=== PATIENT | female | born 1985 | race Caucasian/White ===

== ENCOUNTER 2023-05-15 14:20 | Emergency (ER) | payer OTHER ==
[2023-05-15] MEDS ORDERED: Sodium Chloride 0.9% 1000 ML 1,000 ML IV STA (14:39)
[2023-05-15] MEDS ORDERED: BENADRYL 50 MG/ML IV ONE (14:39)
[2023-05-15] MEDS ORDERED: Reglan 10 MG/2 ML IV ONE (14:39)
[2023-05-15] MEDS ORDERED: TORAdol 30 mg Injection IV ONE (14:39)
[2023-05-15 14:44] VITALS: TEMP 97.6; O2SAT 97
[2023-05-15 15:08] LABS: Absolute Neutrophil Ct (ANC) 4.27 x10^3/uL (1.4-6.9); BASOPHIL % 0.4 % (0.0-0.4); Basophil (Absolute #) 0.03 x10^3/uL (0-0.4); Eosinophil % 1.1 % (0.00-5.0); Eosinophil (Absolute #) 0.08 x10^3/uL (0-0.5); Hematocrit 39.9 % (35-47); Hemoglobin 12.9 g/dL (12.0-16.0); IMMATURE GRAN # 0.01 x10^3u/L (0.00-0.03); IMMATURE GRAN % 0.1 % (0.00-0.4); Lymphocyte (Absolute #) 2.21 x10^3/uL (1.0-4.6); Lymphocytes % 30.2 % (24.0-44.0); Mean Cell Volume 89.5 fL (78-100); Mean Corpuscular Hemoglobin 28.9 pg (26-32); Mean Corpuscular Hgb Concent. 32.3 g/dL (32-36); Mean Platelet Volume 10.3 fL (7.5-11.0); Monocyte (Absolute #) 0.72 x10^3/uL (0.0-1.3); Monocytes % 9.8 % (0.0-12.0); Neutrophil % 58.4 % (36.0-66.0); Platelet Count 346 x10^3/uL (150-450); Red Blood Count 4.46 x10^6/uL (4.1-5.4); Red Cell Distribution Width 13.2 % (11.5-14.0); White Blood Count 7.3 x10^3/uL (4.0-10.5)
[2023-05-15 15:22] LABS: ALBUMIN 4.4 g/dL (3.5-5.0); ALKALINE PHOSPHATASE 51 U/L (38-126); BLOOD UREA NITROGEN 11 mg/dL (7-17); CHLORIDE 105 mmol/L (98-107); Calcium 9.7 mg/dL (8.4-10.2); Carbon Dioxide 21 mmol/L (22-30); Creatinine 1 0.74 mg/dL (0.52-1.04); EST GLOMERULAR FILTRATION RATE > 60.0 ML/MIN; Glucose 117 mg/dL (74-106); Potassium 3.8 mmol/L (3.5-5.1); SGOT/AST 28 U/L (14-36); SGPT/ALT 30 U/L (0-35); SODIUM 139 mmol/L (137-145); Total Protein 7.7 g/dL (6.3-8.2)
[2023-05-15 15:24] LABS: Erythrocyte Sedimentation Rate 15 mm/hr (0-20)
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
[2023-05-15] MEDS ORDERED: TORAdol 30 mg Injection ONE (15:41)
[2023-05-15] MEDS ORDERED: BENADRYL 50 MG/ML ONE (15:42)
[2023-05-15] MEDS ORDERED: Sodium Chloride 0.9% 1000 ML 1,000 ML ONE (15:42)
[2023-05-15] MEDS ORDERED: Reglan 10 MG/2 ML ONE (15:42)
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
[2023-05-15 17:05] VITALS: BP 120/78; PULSE 77; RESP 18
== END 2023-05-15 17:02 | disposition home or self-care (01) ==
LOC: ED 14:20
DX: G43.009 Migraine without aura, not intractable, without status migrainosus (principal); S06.0X0A Concussion without loss of consciousness, initial encounter; V89.2XXA Person injured in unspecified motor-vehicle accident, traffic, initial encounter; R11.0 Nausea; R20.2 Paresthesia of skin; R53.83 Other fatigue; I10 Essential (primary) hypertension; Z79.899 Other long term (current) drug therapy; Z28.310 Unvaccinated for COVID-19
CPT/HCPCS: 36415; 70450; 80053; 85025; 85652; 96360; 96374; 96375; 99284; J1200; J1885

== ENCOUNTER 2024-02-23 18:49 | Emergency (ER) | payer OTHER ==
[2024-02-23 19:03] VITALS: TEMP 97.6
--- NOTE | 2024-02-23 19:31 | ERPHSYRPT ---
- History of Present Illness Time Seen by Provider: 02/23/24 18:55 Source: patient Exam Limitations: no limitations Patient Subjective Stated Complaint: Pt was started on Amoxicillin on Wednesday and Wednesday evening she began getting a rash and so she did not take any med today (Wednesday), itchy Triage Nursing Assessment: Pt was brought to the ER by her mother, vitals wnl, rates pain as 6/10, red small bumpy rash on feet/hands/thighs/back/arms, itchy, denies trouble breathing or tongue swelling Physician History: 38-year-old female presents to emergency department for evaluation of an allergic reaction. Patient was prescribed amoxicillin to treat a right otitis media. Patient began her amoxicillin on Wednesday. By the following day Wednesday patient developed a pruritic rash. Patient took a total of 3 doses of amoxicillin before discontinuation. Patient's last dose was yesterday at approximately 10 PM. No associated nausea or vomiting no abdominal cramping no shortness of breath no wheezing no throat tightness no intraoral lesions. Symptoms have not been constant, nonprogressive over the past day. Patient is allergic to sulfa. Patient otherwise feels well. Patient rates her level of discomfort a 6 out of 10. She is not in pain per say. Patient discomfort is pruritus. Patient voices no other complaints or concerns at this time. Portions of this note were created with voice recognition technology. There may be grammatical, spelling, punctuation or sound alike errors Timing/Duration: yesterday Severity: moderate Modifying Factors: Improves With: nothing Associated Symptoms: denies symptoms Allergies/Adverse Reactions: amoxicillin Allergy (Verified 02/23/24 19:03) Rash Sulfa (Sulfonamide Antibiotics) Allergy (Verified 02/23/24 19:03) Hives Home Medications: Cetirizine HCl [Zyrtec] 10 mg PO DAILY 11/19/14 [History] Benazepril HCl [Lotensin] 10 mg PO DAILY 05/15/23 [History] Ergocalciferol (Vitamin D2) [Vitamin D2] 1,250 mcg PO WEEKLY 05/15/23 [History] Levothyroxine Sodium 88 mcg PO DAILY 05/15/23 [History] Norgestimate-Ethinyl Estradiol [Norg-Ee 0.18-0.215-0.25/0.035] 1 tablet PO DAILY 05/15/23 [History] Topiramate 25 mg [Topamax 25 MG] 25 mg PO DAILY 05/15/23 [History] Zinc Amino Acid Chelate [Zinc] 50 mg PO DAILY 05/15/23 [History] Labetalol HCl 100 mg [Trandate 100 MG] 200 mg PO BID 02/23/24 [History] Hx Tetanus, Diphtheria Vaccination/Date Given: No Hx Influenza Vaccination/Date Given: Yes Hx Pneumococcal Vaccination/Date Given: No Travel Risk - International Travel Have you traveled outside of the country in past 3 weeks: No - Emerging Infectious Disease Are you exhibiting symptoms associated with any current EIDs: No - Review of Systems Constitutional: No Symptoms, No Fever, No Chills Eyes: No Symptoms Ears, Nose, & Throat: No Symptoms Respiratory: No Symptoms, No Cough, No Dyspnea Cardiac: No Symptoms, No Chest Pain, No Edema, No Syncope Abdominal/Gastrointestinal: No Symptoms, No Abdominal Pain, No Nausea, No Vomiting, No Diarrhea Genitourinary Symptoms: No Symptoms, No Dysuria Musculoskeletal: No Symptoms, No Back Pain, No Neck Pain Skin: No Symptoms, No Rash Neurological: No Symptoms, No Dizziness, No Focal Weakness, No Sensory Changes Psychological: No Symptoms Endocrine: No Symptoms Hematologic/Lymphatic: No Symptoms Immunological/Allergic: No Symptoms All Other Systems: Reviewed and Negative - Past Medical History Pertinent Past Medical History: Yes Neurological History: Migraines ENT History: Other Cardiac History: Hypertension Respiratory History: No Pertinent History Endocrine Medical History: Hypothyroidism Musculoskeletal History: Other GI Medical History: No Pertinent History History: No Pertinent History Psycho-Social History: No Pertinent History Female Reproductive Disorders: No Pertinent History Other Medical History: B Carpal Tunnel Releases (2016, 2018), Breast Cyst Removal (2013) - Past Surgical History Past Surgical History: Yes Neuro Surgical History: No Pertinent History Cardiac: No Pertinent History Respiratory: No Pertinent History Gastrointestinal: No Pertinent History Genitourinary: No Pertinent History Musculoskeletal: No Pertinent History, Orthopedic Surgery Female Surgical History: No Pertinent History Other Surgical History: wisdom teeth, B Carpal Tunnel Releases (2016, 2018), Breast Cyst Removal (2013), 2 right wrist surgeries - Female History Hx Now: No - Social History Smoking Status: Never smoker How long have you smoked: n Exposure to second hand smoke: No Drug Use: none Patient Lives Alone: No - Nursing Vital Signs Nursing Vital Signs: Initial Vital Signs Temperature 97.6 F 02/23/24 18:53 Pulse Rate 85 02/23/24 18:53 Blood Pressure 130/93 02/23/24 18:53 O2 Sat by Pulse Oximetry 98 02/23/24 18:53 Pain Scale Pain Intensity 6 - Physical Exam General Appearance: no apparent distress, alert Eye Exam: PERRL/EOMI, eyes nml inspection Ears, Nose, Throat Exam: normal ENT inspection, pharynx normal, moist mucous membranes, other (Patient diagnosed with an otitis media of the right ear. Symptoms have improved. No obvious active infection during my exam. However exam limited secondary to ear cerumen. Patient did report some discomfort during right ear otoscopy. No mastoid pain or tenderness overlying soft tissue intact) Neck Exam: normal inspection, non-tender, supple, full range of motion Respiratory Exam: normal breath sounds, lungs clear, airway intact, other, No respiratory distress, No diminished breath sounds, No accessory muscle use, No wheezing, No stridor Cardiovascular Exam: regular rate/rhythm, normal heart sounds, normal peripheral pulses Gastrointestinal/Abdomen Exam: soft, normal bowel sounds, No tenderness, No mass Back Exam: normal inspection, normal range of motion, No CVA tenderness, No vertebral tenderness Extremity Exam: normal inspection, normal range of motion, pelvis stable Neurologic Exam: alert, oriented x 3, cooperative, normal mood/affect, sensation nml, No motor deficits Skin Exam: normal color, warm, dry, No rash Lymphatic Exam: No adenopathy SpO2 Interpretation: normal SpO2: 98 O2 Delivery: Room Air - Course Nursing assessment & vital signs reviewed: Yes Ordered Tests: Medication Summary Discontinued Medications Generic Name Dose Route Start Last Admin Trade Name Freq PRN Reason Stop Dose Admin Methylprednisolone Sodium 0 mg 02/23/24 19:08 Succinate 125 mg/ Sterile IM 02/23/24 19:09 Water 2 ml STAT ONE Diphenhydramine HCl 25 mg 02/23/24 19:08 Diphenhydramine Hcl 25 Mg Capsule PO 02/23/24 19:09 STAT ONE Famotidine 20 mg 02/23/24 19:08 Famotidine 20 Mg Tablet PO 02/23/24 19:09 STAT ONE - Progress Progress: improved Progress Note: 38-year-old female presents to emergency department secondary to a pruritic rash that developed after taking amoxicillin for an otitis media. Physical exam reveals hives and areas of wheals on her hands feet upper thighs. No involvement of her oral mucosa. No stridor. No wheezing no respiratory distress. Patient received Pepcid Benadryl Solu-Medrol. Patient monitored. No progression of her symptoms. A prescription for prednisone and famotidine forwarded to patient's pharmacy. Patient has Benadryl at home. A prescription for azithromycin was forwarded to her pharmacy by her primary care physician. Of note patient contacted her primary care physician regarding her reaction to amoxicillin. They changed her prescription to azithromycin. Patient will bead picker her azithromycin from the pharmacy tomorrow along with her other prescribed medications. Patient states he is ready for discharge. Mother at bedside. They voiced no other complaints or concerns at this time. Portions of this note were created with voice recognition technology. There may be grammatical, spelling, punctuation or sound alike errors Complexity problem addressed is moderate acute complicated. No critical care time. Complex of data reviewed and analyzed is none. Diagnosis made based on history and physical examination. No specialized testing ordered. Risk of complication and or risk morbidity/mortality patient management is moderate. Test ordered test reviewed results analyzed and correlated clinically with history and physical examination. A prescription for famotidine and prednisone forwarded to patient's pharmacy. Vital stable. Time spent to discharge patient approximately 20 minutes. Plan of care established for shared decision making. No social determinants of health present impede follow-up. Patient agrees to follow-up with her primary care doctor within 48 hours for evaluation Portions of this note were created with voice recognition technology. There may be grammatical, spelling, punctuation or sound alike errors 02/23/24 19:31 Counseled pt/family regarding: diagnosis, need for follow-up - Departure Departure Disposition: Home Clinical Impression: Pruritic rash, Allergic reaction Condition: Stable Critical Care Time: No Referrals: FAHAD BROWN NP [Primary Care Provider] - Follow up/PCP as directed Additional Instructions: Discharge/Care Plan RAJWINDER AUSTIN was seen on 02/23/24 in the Emergency Room. The patient was counseled regarding Diagnosis,Lab results, Imaging studies, need for follow up and when to return to the Emergency Room. Prescriptions given: Discharge Note I have spoken with the patient and/or caregivers. I have explained the patient's condition, diagnosis and treatment plan based on the information available to me at this time. I have answered the patient's and/or caregiver's questions and addressed any concerns. The patient and/or caregivers have as good understanding of the patient's diagnosis, condition and treatment plan as can be expected at this point. The vital signs have been stable. The patient's condition is stable and appropriate for discharge from the emergency department. The patient will pursue further outpatient evaluation with the primary care physician or other designated or consulting physician as outlined in the discharge instructions. The patient and/or caregivers are agreeable to this plan of care and follow-up instructions have been explained in detail. The patient and/or caregivers have received these instruction. The patient/and or caregivers are aware that any significant change in condition or worsening of symptoms should prompt an immediate return to this or the closest emergency department or call 911. Prescriptions: Prednisone 10 mg [Deltasone 10 mg] 40 mg PO DAILY 3 Days #12 tablet Famotidine 20 mg [Pepcid 20 MG] 20 mg PO BID 7 Days #14 tablet
[2024-02-23] MEDS ORDERED: Sterile H2O 10 ml IJ ONE (19:35)
[2024-02-23] MEDS ORDERED: Pepcid 20 MG ONE (19:36)
[2024-02-23] MEDS ORDERED: BENADRYL 25 MG CAPSULE ONE (19:36)
[2024-02-23] MEDS ORDERED: solu-MEDROL ONE (19:36)
[2024-02-23] MEDS: solu-MEDROL 125 MG, Sterile H2O 10 ml 2 ML IM ONE (19:40)
[2024-02-23] MEDS: BENADRYL 25 MG CAPSULE PO ONE (19:40)
[2024-02-23] MEDS: Pepcid 20 MG PO ONE (19:40)
[2024-02-23 19:54] VITALS: RESP 19
[2024-02-23 20:07] VITALS: BP 116/78; PULSE 76; O2SAT 97
== END 2024-02-23 20:11 | disposition home or self-care (01) ==
LOC: ED 18:49
DX: L27.0 Generalized skin eruption due to drugs and medicaments taken internally (principal); L29.8 Other pruritus; T36.0X5A Adverse effect of penicillins, initial encounter; I10 Essential (primary) hypertension; Z79.52 Long term (current) use of systemic steroids; Z79.899 Other long term (current) drug therapy
CPT/HCPCS: 96372; 99283; J2919; A9270-GY